=== PATIENT | female | born 1975 | race Caucasian/White ===

== ENCOUNTER 2017-06-03 23:00 | Emergency (ER) | payer BC, OTHER ==
[~2017-06-03 23:00] MED LIST: SYNT75TA PO
[2017-06-03 23:01] VITALS: BP 108/66; PULSE 76; RESP 16; TEMP 98.5; O2SAT 98
--- NOTE | 2017-06-03 23:21 | PD ---
HPI Chief Complaint: Laceration/Skin Injury Time Seen by Provider: 23:17 Travel History International Travel<30 days: No Contact w/Intl Traveler<30days: No Traveled to known affect area: No History of Present Illness HPI 42-year-old female who is right handed, presents to the emergency department for evaluation of a laceration to the dorsal aspect of the right hand. Patient states she "fell through the window." She did not strike it. She reports moderate pain at the site, exacerbated by touch. She is up-to-date on her tetanus vaccination. Denies any alterations in sensation or limitations in range of motion. She has no other symptoms to report. PFSH Past Medical History Medical History: Denies Significant Hx ?: Not Social History Alcohol Use: No Tobacco Use: Yes Allergies-Medications (Allergen,Severity, Reaction): Coded Allergies: No Known Allergies (Unverified , 06/03/17) Reported Meds & Prescriptions Reported Meds & Active Scripts Active Ibuprofen 600 Mg Tab 600 Mg PO Q8HR PRN Keflex (Cephalexin) 500 Mg Cap 500 Mg PO Q6H 5 Days Review of Systems Except as stated in HPI: all other systems reviewed are Neg Physical Exam Narrative GENERAL: Well-nourished, well-developed male patient in no acute distress SKIN: Focused skin assessment warm/dry. Superficial lacerations/skin flap over the dorsal aspect of the right hand just proximal to the fourth and fifth digits. HEAD: Normocephalic. EYES: No scleral icterus. No injection or drainage. NECK: Supple, trachea midline. No JVD or lymphadenopathy. CARDIOVASCULAR: Regular rate and rhythm without murmurs, gallops, or rubs. RESPIRATORY: Breath sounds equal bilaterally. No accessory muscle use. MUSCULOSKELETAL: No cyanosis, or edema. Patient is full flexion and extension of all the digits of the affected extremity. Cap refill within normal limits. BACK: Nontender without obvious deformity. No CVA tenderness. Data Data Last Documented VS Vital Signs Date Time Temp Pulse Resp B/P (MAP) Pulse Ox O2 Delivery O2 Flow Rate FiO2 06/04/17 00:27 06/03/17 23:27 20 06/03/17 23:01 98.5 76 98 Room Air Orders Orders Hand, Complete ([id number]) (06/03/17 ) [facility] Medical Decision Making Medical Screen Exam Complete: Yes Emergency Medical Condition: Yes Medical Record Reviewed: Yes Differential Diagnosis Laceration superficial versus deep versus abrasion versus avulsion versus tendon injury Narrative Course 42-year-old female presents to the emergency department for evaluation a laceration to the dorsal aspect of the right hand. The extremity is neurovascularly intact. This is a superficial flap, it is approximated using Steri-Strips. Patient scalp wound care. She is encouraged follow-up with primary care provider and return immediately with any acute worsening symptoms. Procedures Procedure Narrative LACERATION LOCATION: Dorsal right hand LENGTH: 3centimeter V-shaped flap NUMBER OF STITCHES/JAYDE: Steri-Strips REPAIR: The area of the laceration was prepped with Betadine and sterilely draped. The wound was copiously irrigated and explored without evidence of foreign body, tendon injury or neurovascular injury. The wound was closed using Steri-Strips. This was a single layer repair. A sterile dressing was applied. The patient was advised to keep the dressing clean and dry. Patient tolerated the procedure well. Diagnosis Primary Impression: Laceration of right hand Qualified Codes: S61.411A - Laceration without foreign body of right hand, initial encounter Referrals: Primary Care Physician Patient Instructions: General Instructions, Laceration (ED) Additional Instructions: Keep the area clean and dry You may shower Do not submerge your hand in dish water or dirty water for the next week Follow up with your primary care provider Return immediately with acute worsening of symptoms Med/Other Pt SpecificInfo: Prescription(s) given Scripts Ibuprofen (Ibuprofen) 600 Mg Tab 600 MG PO Q8HR Y for PAIN, #30 TAB 0 Refills Prov: Elle Fenton 06/04/17 Cephalexin (Keflex) 500 Mg Cap 500 MG PO Q6H for Infection for 5 Days, #20 CAP 0 Refills Prov: Elle Fetnon 06/04/17 Disposition: 01 DISCHARGE HOME Condition: Stable Elle Fenton Jun 03, 2017 23:20
--- NOTE | 2017-06-03 23:56 | RADRPT ---
EXAM DATE/TIME: 06/03/2017 23:31 [facility] COMPARISON: No previous studies available for comparison. INDICATIONS : Right hand pain post fall. MEDICAL HISTORY : Right hand fractures. SURGICAL HISTORY : None. ENCOUNTER: Initial ACUITY: 1 day PAIN SCORE: 8/10 LOCATION: Right hand. FINDINGS: Three view examination of the right hand demonstrates no soft tissue swelling, dislocation, or fractu re. An old fracture that is well healed is seen involving the fifth metacarpal. The carpal bones silas ear intact. The interphalangeal and metacarpophalangeal joints are intact. Bony mineralization is n ormal. CONCLUSION: Old trauma involving the fifth metacarpal. Otherwise, unremarkable exam. Niko Lockhart Jr., MD on June 03, 2017 at 23:54 Board Certified Radiologist. This report was verified electronically.
[2017-06-04] MEDS ORDERED: IBUP-232 PO (00:23)
[2017-06-04] MEDS ORDERED: CEPH-460 PO (00:23)
== END 2017-06-04 00:40 | disposition home or self-care (01) ==
LOC: NEPD 23:00
DX: S61.411A Laceration without foreign body of right hand, initial encounter (principal); W19.XXXA Unspecified fall, initial encounter
CPT/HCPCS: 73130; 99283